=== PATIENT | female | born 1950 | race Caucasian/White ===

== ENCOUNTER 2016-04-15 02:34 | Emergency (ER) | payer MEDICAID ==
[~2016-04-15] VITALS: Ht 152.4 cm; Wt 70.0 kg
[2016-04-15 02:39] VITALS: Ht 152.4 cm; Wt 70.0 kg
--- NOTE | 2016-04-15 03:01 | ERA ---
ER Documentation Chief Complaint Date/Time DATE: 04/15/16 TIME: 03:01 Chief Complaint Fever and cough HPI The patient is a 66-year-old female, resenting to the ER because of fever, cough , nausea, diarrhea, abdominal pain for the last 3 days. The symptoms are worse today, therefore she came to the ER. She denies nasal congestion, neck pain, chest pain, dyspnea. She complains of dysuria. The abdominal pain is 5/10, worse with cough. She smokes half a pack a day, drinks socially Past medical/surgical history: None ROS All systems reviewed and are negative except as per history of present illness. Medications Home Meds Active Scripts Ibuprofen* (Motrin*) 600 Mg Tab, 600 MG PO Q6H Y for PAIN AND OR ELEVATED TEMP, #30 TAB Prov:ELLIOT MORAN MD 04/15/16 Dextromethorphan Hb-Promethazine Hcl (Promethazine DM Syrup) 473 Ml Syrup, 10 ML PO Q6H Y for COUGH, #4 OZ Prov:ELLIOT MORAN MD 04/15/16 Levofloxacin* (Levofloxacin*) 750 Mg Tablet, 750 MG PO DAILY, #9 TAB Prov:ELLIOT MORAN MD 04/15/16 Allergies Allergies: Coded Allergies: No Known Allergy (Unverified , 04/15/16) Physical Exam Vitals Vital Signs Date Time Temp Pulse Resp B/P Pulse Ox O2 Delivery O2 Flow Rate FiO2 04/15/16 05:31 101.3 93 22 108/58 96 Room Air 04/15/16 04:27 105 30 131/76 96 Room Air 04/15/16 02:39 103.5 117 18 146/66 95 Physical Exam Const: No acute distress. Head: Atraumatic. Eyes: Normal Conjunctiva. ENT: Normal External Ears, Nose and Mouth. Neck: Full range of motion. No meningismus. Resp: Left basilar crackles Cardio: Regular but tachycardic Abd: Soft, non distended, normal bowel sounds, diffuse and vague abdominal tenderness, no rigidity, rebound, CVA tenderness Skin: No petechiae or rashes. Back: No midline or flank tenderness. Ext: No cyanosis, or edema. Neur: Awake and alert. No focal deficit Psych: Normal Mood and Affect. Result Diagram: 04/15/16 0330 04/15/16 0330 Results 24 hrs Laboratory Tests Test 04/15/16 03:30 Activated Partial Thromboplast Time 26.4Sec Alanine Aminotransferase (ALT/SGPT) 66IU/L Albumin 3.7g/dl Albumin/Globulin Ratio 1.02 Alkaline Phosphatase 122IU/L Anion Gap 19 Aspartate Amino Transf (AST/SGOT) 46IU/L Basophils # 0.010^3/ul Basophils % 0.0% Blood Urea Nitrogen 14mg/dl Calcium Level 8.9mg/dl Carbon Dioxide Level 23mmol/L Chloride Level 101mmol/L Creatinine 0.82mg/dl Direct Bilirubin 0.00mg/dl Eosinophils # 0.010^3/ul Eosinophils % 0.0% Globulin 3.60g/dl Glucose Level 155mg/dl Hematocrit 34.7% Hemoglobin 12.0g/dl INR International Normalized Ratio 1.07 Indirect Bilirubin 0.4mg/dl Lactic Acid Level 1.6mmol/L Lymphocytes # 0.910^3/ul Lymphocytes % 4.7% Mean Corpuscular Hemoglobin 31.6pg Mean Corpuscular Hemoglobin Concent 34.6g/dl Mean Corpuscular Volume 91.2fl Mean Platelet Volume 10.2fl Monocytes # 1.010^3/ul Monocytes % 5.4% Neutrophils # 16.510^3/ul Neutrophils % 89.9% Nucleated Red Blood Cells # 0.010^3/ul Nucleated Red Blood Cells % 0.0/100WBC Platelet Count 57059^3/UL Potassium Level 3.6mmol/L Prothrombin Time 13.9Sec Prothrombin Time Ratio 1.1 Red Blood Count 3.8110^6/ul Red Cell Distribution Width 12.7% Sodium Level 139mmol/L Total Bilirubin 0.4mg/dl Total Protein 7.3g/dl Troponin I < 0.012ng/ml White Blood Count 18.410^3/ul Current Medications Medications (Trade) Dose Ordered Sig/Mckayla Route PRN Reason Start Time Stop Time Status Last Admin Dose Admin Ibuprofen (Motrin) 600 mg ONCE ONCE PO 04/15/16 03:30 04/15/16 03:31 DC 04/15/16 04:09 Acetaminophen (Tylenol Tab) 650 mg ONCE ONCE PO 04/15/16 03:30 04/15/16 03:31 DC 04/15/16 04:09 Morphine Sulfate (morphine) 2 mg ONCE ONCE IV 04/15/16 03:30 04/15/16 03:31 DC 04/15/16 04:10 Ondansetron HCl 4 mg 4 mg ONCE STAT IV 04/15/16 03:14 04/15/16 03:15 DC 04/15/16 04:09 Levofloxacin/ Dextrose 150 ml @ 100 mls/hr ONCE ONCE IVPB 04/15/16 05:30 04/15/16 06:59 04/15/16 05:11 Sodium Chloride 500 ml @ 500 mls/hr Q1H ONCE IV 04/15/16 05:30 04/15/16 06:29 04/15/16 05:25 Sodium Chloride (NS) 500 ml @ 500 mls/hr Q1H ONCE IV 04/15/16 06:00 04/15/16 06:59 Procedures/MDM EKG: Read by emergency physician Rate/Rhythm: Sinus tachycardia 106 beats per min QRS, ST, T-waves: No ST elevation, no T wave inversion, low voltage Impression: Abnormal EKG [place] [address] Radiology Main Line: [phone] DIAGNOSTIC IMAGING REPORT Patient: SELMA PAT : 1950 Age: 66 Sex: F MR #: [id number] DOS: 04/15/16 0301 Ordering MD: ELLIOT MORAN MD Location: E/R Room/Bed: PROCEDURE: Chest. CLINICAL INDICATION: Chest pain. TECHNIQUE: Single frontal view of the chest was obtained. COMPARISON: None. FINDINGS: The cardiac silhouette is magnified. The aortic arch is unremarkable. There is no focal consolidation, vascular congestion or pleural effusion. There is no pneumothorax. IMPRESSION: No evidence for active cardiopulmonary disease. .Attila Sesay MD, MD Date Time Electronically viewed and signed by .Attila Sesay MD, MD on 04/15/2016 03:51 .T/ CC: ELLIOT MORAN MD [facility] [address] [place] [address] Radiology Main Line: [phone] DIAGNOSTIC IMAGING REPORT Patient: SELMA PAT : 1950 Age: 66 Sex: F MR #: [id number] DOS: 04/15/16 0308 Ordering MD: ELLIOT MORAN MD Location: E/R Room/Bed: PROCEDURE: CT Abdomen and pelvis without contrast. CLINICAL INDICATION: Abdominal pain. TECHNIQUE: CT scan of the abdomen and pelvis was performed on a multi- detector high-resolution CT scanner. Contiguous axial images were obtained from the lung bases to the ischial tuberosities without intravenous contrast. Coronal and sagittal reformatted images were also obtained. Images were reviewed on the PACS workstation. One or more of the following dose reduction techniques were used: - Automated exposure control. - Adjustment of the mA and/or kV according to patient size. - Use of iterative reconstruction technique. Exam CTD/vol = 14.34 mGy. Total exam DLP = 813.84 mGy-cm. COMPARISON: None. FINDINGS: Evaluation of the lung bases demonstrates patchy consolidation within the left lower lobe. Abdomen: The liver is normal in size. There is no focal mass or dilatation of the biliary tree. The gallbladder is not distended. The spleen, pancreas and bilateral adrenal glands are within normal limits. Bilateral kidneys are normal in size with no contour deforming mass identified. There is no radiopaque renal or ureteral calculus identified. There is no hydronephrosis or hydroureter. There is no retroperitoneal adenopathy. The abdominal aorta is of normal caliber with mild scattered atherosclerotic calcifications. There is no abnormal bowel wall thickening or distension. There is no bowel obstruction or free air. A normal appendix is identified. There is no diverticulosis or diverticulitis. There is no ascites. Pelvis: The bladder is unremarkable. The uterus and adnexa are within normal limits. There is trace pelvic free fluid. There is no significant pelvic adenopathy. Evaluation of the osseous structures demonstrates no suspicious lytic or blastic lesion. IMPRESSION: Left lower lobe patchy consolidation. Trace pelvic free fluid Mild vascular calcifications reflective of atherosclerosis. .Attila Sesay MD, MD Date Time Electronically viewed and signed by .Attila Sesay MD, MD on 04/15/2016 04:09 .T/ CC: ELLIOT MORAN MD MEDICAL MAKING DECISION: The patient is a 66-year-old female, presenting with acute pneumonia and acute dehydration. She was treated with 1 L normal saline, Levaquin IV,, morphine 2 mg IV for pain, Zofran 4 IV for nausea, Tylenol 650 mg p.o. and Motrin 600 mg p.o. for fever with good response. The differential diagnoses for acute dyspnea considered include but are not limited to asthma, COPD, pneumonia, pulmonary embolus, pleural effusion, congestive heart failure. The differential diagnoses for acute abdominal pain considered include but are not limited to cholelithiasis, cholecystitis, cystitis, pancreatitis, hepatitis, gastritis, peptic ulcer disease, gastric ulcer, appendicitis, diverticulitis, cholangitis, choledocholithiasis, partial small bowel obstruction. Departure Diagnosis: Primary Impression: Pneumonia Additional Impression: Dehydration Condition: Good Comments She was discharged with Motrin, Levaquin, Phenergan DM I discussed the findings with the patient. I advised the patient to follow-up with the primary physician in about 1-2 days, sooner if needed and return if any concern. The patient's blood pressure was elevated (>120/80) but appears stable without evidence of hypertension emergency or urgency. The patient was counseled about the risks of hypertension and urged to pursue outpatient monitoring and therapy within a week with their primary care physician. ELLIOT MORAN MD Apr 15, 2016 03:01
[2016-04-15] MEDS ORDERED: ONDANSETRON 4 MG INJ IV STA (03:14)
[2016-04-15] MEDS ORDERED: ACETAMINOPHEN 325 MG TAB PO ONE (03:30)
[2016-04-15] MEDS ORDERED: morphine 2 MG INJ IV ONE (03:30)
[2016-04-15] MEDS ORDERED: IBUPROFEN 600 MG TAB PO ONE (03:30)
--- NOTE | 2016-04-15 03:51 | RADRPT ---
PROCEDURE: Chest. CLINICAL INDICATION: Chest pain. TECHNIQUE: Single frontal view of the chest was obtained. COMPARISON: None. FINDINGS: The cardiac silhouette is magnified. The aortic arch is unremarkable. There is no focal consolidat ion, vascular congestion or pleural effusion. There is no pneumothorax. IMPRESSION: No evidence for active cardiopulmonary disease. .Attila Sesay MD, MD Date Time Electronically viewed and signed by .Attila Sesay MD, on 04/15/2016 03:51 .T/
[2016-04-15 04:05] LABS: INR 1.07; PROTIME 13.9 Sec (12.2-14.2); PT RATIO 1.1
[2016-04-15 04:06] LABS: PARTIAL THROMBOPLASTIN TIME 26.4 Sec (25.0-35.0)
[2016-04-15 04:09] LABS: ALBUMIN 3.7 g/dl (3.3-4.9); CHLORIDE 101 mmol/L (97-110); POTASSIUM 3.6 mmol/L (3.5-5.1); SODIUM 139 mmol/L (135-144)
--- NOTE | 2016-04-15 04:09 | RADRPT ---
PROCEDURE: CT Abdomen and pelvis without contrast. CLINICAL INDICATION: Abdominal pain. TECHNIQUE: CT scan of the abdomen and pelvis was performed on a multi-detector high-resolution CT scanner. Contiguous axial images were obtained from the lung bases to the ischial tuberosities wit hout intravenous contrast. Coronal and sagittal reformatted images were also obtained. Images were reviewed on the PACS workstation. One or more of the following dose reduction techniques were used: - Automated exposure control. - Adjustment of the mA and/or kV according to patient size. - Use of iterative reconstruction technique. Exam CTD/vol = 14.34 mGy. Total exam DLP = 813.84 mGy-cm. COMPARISON: None. FINDINGS: Evaluation of the lung bases demonstrates patchy consolidation within the left lower lobe. Abdomen: The liver is normal in size. There is no focal mass or dilatation of the biliary tree. T he gallbladder is not distended. The spleen, pancreas and bilateral adrenal glands are within monica l limits. Bilateral kidneys are normal in size with no contour deforming mass identified. There is no radiopaque renal or ureteral calculus identified. There is no hydronephrosis or hydroureter. T here is no retroperitoneal adenopathy. The abdominal aorta is of normal caliber with mild scattered atherosclerotic calcifications. There is no abnormal bowel wall thickening or distension. There is no bowel obstruction or free air . A normal appendix is identified. There is no diverticulosis or diverticulitis. There is no asci lanny. Pelvis: The bladder is unremarkable. The uterus and adnexa are within normal limits. There is tra ce pelvic free fluid. There is no significant pelvic adenopathy. Evaluation of the osseous structures demonstrates no suspicious lytic or blastic lesion. IMPRESSION: Left lower lobe patchy consolidation. Trace pelvic free fluid Mild vascular calcifications reflective of atherosclerosis. .Attila Sesay MD, MD Date Time Electronically viewed and signed by .Attila Sesay MD, MD on 04/15/2016 04:09 .T/
[2016-04-15 04:11] LABS: ANION GAP 19 (8-16); CARBON DIOXIDE 23 mmol/L (21-31); CREATININE 0.82 mg/dl (0.44-1.00)
[2016-04-15 04:12] LABS: ALANINE AMINOTRANSFERASE 66 IU/L (13-69); ALBUMIN/GLOBULIN RATIO 1.02; ALKALINE PHOSPHATASE 122 IU/L (42-121); ASPARTATE AMINO TRANSFERASE 46 IU/L (15-46); BILIRUBIN,INDIRECT 0.4 mg/dl (0-1.1); BILIRUBIN,TOTAL 0.4 mg/dl (0.2-1.3); BLOOD UREA NITROGEN 14 mg/dl (7-20); CALCIUM 8.9 mg/dl (8.4-10.2); GLUCOSE 155 mg/dl (70-220); TOTAL PROTEIN 7.3 g/dl (6.1-8.1)
[2016-04-15 04:31] LABS: HEMATOCRIT 34.7 % (37.0-47.0); LYMPHOCYTES # 0.9 10^3/ul (0.8-2.9); LYMPHOCYTES % 4.7 % (15.0-51.0); MEAN CORPUSCULAR HEMOGLOBIN 31.6 pg (29.0-33.0); MEAN CORPUSCULAR HGB CONC 34.6 g/dl (32.0-37.0); MEAN CORPUSCULAR VOLUME 91.2 fl (82.0-101.0); MEAN PLATELET VOLUME 10.2 fl (7.4-10.4); MONOCYTES % 5.4 % (0.0-11.0); NEUTROPHIL # 16.5 10^3/ul (1.6-7.5); NEUTROPHILS % 89.9 % (39.0-77.0); PLATELET COUNT 169 10^3/UL (140-440); RED BLOOD COUNT 3.81 10^6/ul (4.20-5.40); RED CELL DISTRIBUTION WIDTH 12.7 % (11.5-14.5); UNCORRECTED WBC 18.4 10^3/ul (4.8-10.8); WHITE BLOOD COUNT 18.4 10^3/ul (4.8-10.8)
[2016-04-15 04:36] LABS: CONDITION 1; LH ANALYZER COMMENTS 1; SUSPECT 1
[2016-04-15 04:37] LABS: TROPONIN-I < 0.012 ng/ml (0.00-0.12)
[2016-04-15] MEDS ORDERED: LEVO750T8 PO (05:28)
[2016-04-15] MEDS ORDERED: D-ME473S18 PO (05:29)
[2016-04-15] MEDS ORDERED: IBUP-1542 PO (05:29)
[2016-04-15] MEDS ORDERED: LEVOFLOXACIN 750MG/D5W (PMX) 150 ML IVPB ONE (05:30)
[2016-04-15] MEDS ORDERED: SOD CHLORIDE 0.9% 500 ML IV ONE ×2 (05:30→06:00)
[2016-04-15 06:52] VITALS: BP 110/63; PULSE 83; RESP 18; TEMP 98.4
== END 2016-04-15 07:05 | disposition home or self-care (01) ==
LOC: E/R 02:34
DX: J18.9 Pneumonia, unspecified organism (principal); R40.2252 Coma scale, best verbal response, oriented, at arrival to emergency department; E86.0 Dehydration; R11.0 Nausea; F17.210 Nicotine dependence, cigarettes, uncomplicated; R10.9 Unspecified abdominal pain; R40.2362 Coma scale, best motor response, obeys commands, at arrival to emergency department; R40.2142 Coma scale, eyes open, spontaneous, at arrival to emergency department
CPT/HCPCS: 71010; 74176; 80053; 83605; 84484; 85025; 85610; 85730; 87040; 87400; 93005; J2270; J2405; J7040; Z7610; 36415; 96374; 96375

== ENCOUNTER 2017-07-11 13:27 | Day surgery (SDC) | END 2017-07-11 17:18 | disposition home or self-care (01) ==

== ENCOUNTER 2018-02-25 13:43 | Emergency (ER) | END 2018-02-25 17:10 | disposition home or self-care (01) ==